=== PATIENT | male | born 1995 | race Caucasian/White ===

== ENCOUNTER 2018-10-12 23:00 | Emergency (ER) | payer OTHER, SELFPAY ==
[2018-10-12 23:01] VITALS: BP 145/102; PULSE 101; PULSE 94; RESP 16; TEMP 37.3; O2SAT 97; O2SAT 99; BMI 30.1
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
--- NOTE | 2018-10-12 23:05 | RAD_ITS ---
HISTORY:PT WAS AT WORK AND GOT CAUGHT BETWEEN A Tquot;RACK AND TOW MOTORTquot; PT HAS PAIN TO ABDOMEN, CHEST AND BACK. ABRASIONS TO RIGHT ARM AND LATERAL ABDOMEN. PT WAS AT WORK AND GOT CAUGHT BETWEEN A Tquot;RACK AND TOW MOTORTquot; PT HAS PAIN TO ABDOMEN, CHEST AND BACK. ABRASIONS TO RIGHT ARM AND LATERAL ABDOMEN. COMPARISON: None FINDINGS: # of images incl. paperwork: 1 XR Pelvis 1 or 2 Views: BONE AND JOINTS: No acute fracture or subluxation. SOFT TISSUES: Unremarkable. No radiopaque foreign body. RAD/Pelvis 1 or 2 Views IMPRESSION: No acute pathology If symptoms persist consider CT examination for further evaluation at 0010 Reported and signed by: Jeanine Chua DO Electronically Signed: Jeanine Chua DO at 0:09 EDT Tel , Service support ,
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
--- NOTE | 2018-10-12 23:07 | ED.RN ---
NO OLD EKGS IN MUSE
[2018-10-12] MEDS: fentaNYL 100 MCG/2 ML Ampul 50 MCG IV (23:12)
[2018-10-12] MEDS: 0.9% Normal Saline 1,000 ML 999 ML IV (23:12)
[2018-10-12] MEDS: Diphth,Pertuss(Acell),Tet Vac 0.5 ML Vial IM (23:18)
[2018-10-12 23:26] LABS: Absolute Lymphocyte Count 3.69 X10^3/ul (0.83-4.51); Absolute Neutrophil Count 5.7 X10^3/uL (2.0-7.7); Basophil# 0.08 X10^3/uL; Basophil% 0.8 % (0-1); Eosinophil# 0.04 X10^3/uL; Eosinophils% 0.4 % (0-5); Hematocrit 45.1 % (40-54); Hemoglobin 15.9 g/dl (13.0-16.5); Lymphocyte # 3.69 X10^3/ul (4.0); Lymphocyte % 35.6 % (19-41); Mean Corp Hgb Conc 35.3 g/gl (32-36); Mean Corpuscular Hgb 28.8 pg (27.0-32.0); Mean Corpuscular Volume 81.7 fL (80-94); Mean Platelet Vol. 12.1 fl (6.2-12.0); Monocyte# 0.72 X10^3/uL; Monocyte% 6.9 % (0-10); Neutrophil # 5.66 X10^3/uL (2.7-7.7); Neutrophil % 54.6 % (47-70); POSITIVE COUNT NO; POSITIVE DIFFERENTIAL NO; POSITIVE MORPHOLOGY NO; Platelet Count 163 K/mm3 (150-450); RBC Distribution Width CV 12.8 % (11.6-14.6); RBC Distribution Width SD 37.9 fl (35.1-43.9); Red Blood Count 5.52 M/mm3 (4.6-6.2); White Blood Count 10.4 K/mm3 (4.4-11.0)
[2018-10-12 23:34] LABS: Partial Thromboplast Time 24.9 Seconds (24.1-36.2)
[2018-10-12 23:42] LABS: AST(SGOT) 36 U/L (15-37); Alanine Aminotransfer ALT/SGPT 39 U/L (16-61); Albumin, Serum 4.9 g/dL (3.2-5.0); Alkaline Phosphatase 112 U/L (45-117); Anion Gap 9 (5-15); BUN 15 mg/dL (7-18); BUN/Creat Ratio 13.3 RATIO (10-20); Bilirubin, Direct 0.13 mg/dL (0.00-0.30); Calcium,Total 9.4 mg/dL (8.5-10.1); Chloride 104 mmol/L (98-107); Creatinine, Serum 1.13 mg/dL (0.70-1.30); EST Glomerular Filtration Rate 85 mL/min (>60); Est Glom Filt Rate - Afr Amer 103 mL/min (>60); Estimated Creatinine Clearance 98.36 ml/min; Globulin 3.4 g/dL (2.2-4.2); Glucose 107 mg/dL (74-106); Potassium 3.2 mmol/L (3.5-5.1); Protein, Total 8.3 g/dL (6.4-8.2); Sodium Level 140 mmol/L (136-145)
[2018-10-12 23:44] VITALS: O2SAT 96
[2018-10-13 00:01] VITALS: BP 156/87; PULSE 99; RESP 16; O2SAT 98
[2018-10-13 00:04] LABS: Color, Urine Yellow (Yellow); Glucose, Dipstick Normal (Normal); Ketone-Dipstick 5 mg/dl (Negative); Leukocyte Esterase-Dipstick Negative /ul (Negative); Nitrite-Dipstick Negative (Negative); Occult Blood-Urine 25 /ul (Negative); Protein-Dipstick Negative (Negative); Specific Gravity, Urine 1.015 (1.002-1.030); Urine Bilirubin Dipstick Negative (Negative); Urine Clarity Clear (Clear); Urine Urobilinogen Normal (Normal); White Blood Cells 0 SEEN /hpf (0-5)
[2018-10-13 00:11] LABS: Bacteria 1+ /hpf (None Seen); Hyaline Cast 0-5 SEEN /lpf (0-5); Mucous, Urine RARE /hpf (<or=2+); Red Blood Cells-Urine 0-5 SEEN /hpf (0-5)
[2018-10-13 00:12] LABS: Squamous Epithelial Cells - UA 0-5 SEEN /hpf (0-5)
[2018-10-13] MEDS: fentaNYL 100 MCG/2 ML Ampul IV (01:00)
[2018-10-13 01:03] VITALS: BP 160/84; PULSE 97; RESP 14; O2SAT 96
--- NOTE | 2018-10-13 01:07 | ED.RN ---
LEFT MESSAGE FOR GUNJAN MALONEY TO TRANSFER PATIENT
[2018-10-13 02:01] VITALS: BP 139/84; PULSE 90; RESP 16; O2SAT 100
== END 2018-10-13 02:01 | disposition short-term general hospital (02) ==
LOC: ED 10-13 00:14
PROVIDERS: Emergency Provider Emergency Medicine
DX: S38.1XXA Crushing injury of abdomen, lower back, and pelvis, initial encounter (principal); S32.82XA Multiple fractures of pelvis without disruption of pelvic ring, initial encounter for closed fracture; S32.10XA Unspecified fracture of sacrum, initial encounter for closed fracture; S27.69XA Other injury of pleura, initial encounter; S22.32XA Fracture of one rib, left side, initial encounter for closed fracture; S40.811A Abrasion of right upper arm, initial encounter; S30.811A Abrasion of abdominal wall, initial encounter; K63.89 Other specified diseases of intestine; V09.9XXA Pedestrian injured in unspecified transport accident, initial encounter; Y93.9 Activity, unspecified; Y92.9 Unspecified place or not applicable
CPT/HCPCS: 71045; 71260; 72170; 74177; 80048; 80076; 81001; 85025; 85610; 85730; 86850; 86900; 90715; 96361; 96374; 96376; 99284; J7030; Q9967; A4216

== ENCOUNTER 2018-10-19 17:30 | Inpatient (IN) | payer OTHER, SELFPAY ==
[2018-10-19 17:52] VITALS: BP 136/92; PULSE 89; RESP 18; TEMP 36.8; O2SAT 96; BMI 30.4
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
[2018-10-19 19:20] VITALS: BP 136/92; PULSE 89; RESP 16; TEMP 36.8; O2SAT 96
[2018-10-19 20:27] VITALS: BMI 30.4
[2018-10-19] MEDS: Senna/Docusate Sodium 1 Tablet 2 TABLET PO (20:59)
[2018-10-19 22:00] VITALS: O2SAT 100
[2018-10-20] MEDS: oxyCODONE 5 MG Tablet PO (05:37)
[2018-10-20] MEDS: Enoxaparin 30 MG/0.3 ML Syringe SC (05:38)
[2018-10-20 06:17] LABS: Absolute Lymphocyte Count 2.06 X10^3/ul (0.83-4.51); Absolute Neutrophil Count 4.2 X10^3/uL (2.0-7.7); Basophil# 0.06 X10^3/uL; Basophil% 0.8 % (0-1); Eosinophil# 0.17 X10^3/uL; Eosinophils% 2.4 % (0-5); Hemoglobin 12.7 g/dl (13.0-16.5); Lymphocyte # 2.06 X10^3/ul (4.0); Lymphocyte % 28.8 % (19-41); Mean Corp Hgb Conc 34.3 g/gl (32-36); Mean Corpuscular Hgb 28.7 pg (27.0-32.0); Mean Corpuscular Volume 83.7 fL (80-94); Monocyte# 0.67 X10^3/uL; Monocyte% 9.4 % (0-10); Neutrophil # 4.17 X10^3/uL (2.7-7.7); Neutrophil % 58.3 % (47-70); Platelet Count 180 K/mm3 (150-450); RBC Distribution Width CV 12.5 % (11.6-14.6); RBC Distribution Width SD 38.4 fl (35.1-43.9); Red Blood Count 4.42 M/mm3 (4.6-6.2); White Blood Count 7.2 K/mm3 (4.4-11.0)
[2018-10-20 06:19] LABS: POSITIVE COUNT NO; POSITIVE DIFFERENTIAL NO; POSITIVE MORPHOLOGY NO
[2018-10-20 06:41] LABS: ALB/GLOB Ratio 0.9 RATIO (0.9-2.4); AST(SGOT) 79 U/L (15-37); Alanine Aminotransfer ALT/SGPT 147 U/L (16-61); Albumin, Serum 3.6 g/dL (3.2-5.0); Alkaline Phosphatase 79 U/L (45-117); Anion Gap 10 (5-15); BUN 16 mg/dL (7-18); BUN/Creat Ratio 22.4 RATIO (10-20); Calcium,Total 9.3 mg/dL (8.5-10.1); Chloride 105 mmol/L (98-107); Creatinine, Serum 0.72 mg/dL (0.70-1.30); EST Glomerular Filtration Rate 144 mL/min (>60); Est Glom Filt Rate - Afr Amer 174 mL/min (>60); Estimated Creatinine Clearance 154.38 ml/min; Globulin 3.8 g/dL (2.2-4.2); Glucose 87 mg/dL (74-106); Potassium 4.1 mmol/L (3.5-5.1); Protein, Total 7.4 g/dL (6.4-8.2); Sodium Level 141 mmol/L (136-145)
[2018-10-20] MEDS: Senna/Docusate Sodium 1 Tablet 2 TABLET PO ×2 (07:41→20:25)
[2018-10-20 07:49] VITALS: BP 140/76; PULSE 80; RESP 16; TEMP 36.2; O2SAT 96
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
--- NOTE | 2018-10-20 13:00 | NURSING ---
Dr. Ham aware of elevated liver enzymes.
--- NOTE | 2018-10-20 13:44 | PCM.RU.PYE ---
Admission Information Status Changes from Prescreening?: No changes Identified Actual Problem List:: Pain, ALteration in Cmfrt, Mobility Impaired, Self Care Deficit Potential Problem List:: DVT, Bleeding, Infection, UTI, Aspiration, Falls, Skin Integrity, Depression Risk of Complications DVT: LMWH, ANDREW Hose, Sequential Compression Device Bleeding: Monitor Lab Values, Nursing to Teach Precautions for anti-coagulation therapy., Wound, if applicable, to be assessed every shift., Stroke patients assessed for lethargy or change in status. Infection: Clinical Staff to Monitor for S/S of infection:, S/S of infection include fever, redness, warmth, etc. Urinary Tract Infection: Monitor for frequency, burning, discomfort, or incontinence., Nursing will obtain urine sample for urinalysis and C&S when ordered. Aspiration: Clinical staff will monitor for coughing, drooling, congestion., Speech will evaluate swallowing and dsyphasia., Nursing will monitor patient swallowing during meals. Falls: Patient will be evaluated for Fall Precautions, Patient will be placed on Fall Precautions as indicated per protocol. Skin Breakdown: Nursing will assess skin daily using assessment tool., Nursing will place on Skin Breakdown Precautions as indicated. Pain: Clinical staff will assess patient's pain level per protocol., Medications will be given, if needed, and the pain level reassessed., Other methods: Massage, distraction, decrease stimulus, etc. used PRN. Plan of Care Patient requires physician specializing in physical medicine and rehab oversight to provide close medical supervision of rehab issues including: Pain Management, Sleep Problems, Bowel and Bladder, Medical and co-morbidity Management, DVT prophylaxis, Rehabilitation Leadership, Coordination of treatment team Patient needs Physical Therapy: For a minimum of 1 hour, At least 5 out of 7 days Patient needs Physical Therapy to improve:: Mobility, Mobility, Mobility, Strengthening, Transfers, Stretching, ROM, Endurance, Stairs, Gait, Balance Patient needs Occupational Therapy: For a minimum of 1 hour, At least 5 out of 7 days Patient needs Occupational Therapy to improve ADL's incl.: Eating, Grooming, Bathing, Dressing, Toileting, Toilet transfers, Community Reintegration, Higher functioning activities, Household tasks, Adaptive Equipment, Splinting, Other activities as determined Patient requires speech therapy: For a minimum of 1 hour, At least 5 out of 7 days Patient requires speech therapy for: Swallowing, Cognition, Language Skills, Compensatory Strategies Patient requires 24/7 Rehabilitation Nursing for: Pain Issues, Identifying and preventing risk factors, Monitoring and reporting current medical conditions, Assisting with ambulation, transfer, and all ADL's, Teaching patients about disease process and medications, Family teaching, Providing safe environment, Bowel and Bladder Issues, Skin integrity, Medication Management Patient needs Export Administrator/ Case Management for: Discharge Planning, Arranging Home Equipment or Services, Family Interventions Patient needs Dietary and Nutrition Services for: Adequate Nutrition, Nutritional Supplements, Nutritional Education Goals Patient will remain: free from falls, or injury at time of discharge. Patient will perform bed mobility at: MOD I level of assist. Patient will complete transfers from bed to chair at: MOD I level of assist. Patient will ambulate: 100 feet, with MOD I assist, with LRD Patient will complete upper body dressing at: MOD I level of assist. Patient will complete lower body dressing at: MOD I level of assist. Patient will complete toileting at: MOD I level of assist. Patient will perform bathing at: MOD I level of assist. Patient will complete grooming at: MOD I level of assist. Patient will complete home management skills at: MOD I level of assist. Patient will achieve: 12 stairs, at MOD I assist Patient will have pain level of: of 3 or less Patient's skin will: remain intact, free from infection. Patient will receive: adequate nutrition. Discharge Planning Pt Prognosis for Sig. Practical Improv. w/in Reasonable Time: Good Estimated Length of stay (days): 14 Anticipated D/C Destination: Home Was Preadmission Assessment Accurate?: Yes
[2018-10-20 19:38] VITALS: BP 146/81; PULSE 76; RESP 16; TEMP 36.8; O2SAT 99
[2018-10-20] MEDS: LORazepam 0.5 MG Tablet PO (20:27)
[2018-10-21] MEDS: Enoxaparin 40 MG/0.4 ML Syringe SC (06:08)
[2018-10-21 07:16] LABS: Absolute Lymphocyte Count 2.04 X10^3/ul (0.83-4.51); Basophil# 0.05 X10^3/uL; Basophil% 0.7 % (0-1); Eosinophil# 0.18 X10^3/uL; Eosinophils% 2.7 % (0-5); Hematocrit 42.9 % (40-54); Hemoglobin 14.8 g/dl (13.0-16.5); Lymphocyte # 2.04 X10^3/ul (4.0); Mean Corp Hgb Conc 34.5 g/gl (32-36); Mean Corpuscular Hgb 29.1 pg (27.0-32.0); Mean Corpuscular Volume 84.3 fL (80-94); Mean Platelet Vol. 10.7 fl (6.2-12.0); Monocyte# 0.53 X10^3/uL; Monocyte% 7.8 % (0-10); Neutrophil # 3.97 X10^3/uL (2.7-7.7); Neutrophil % 58.5 % (47-70); Platelet Count 232 K/mm3 (150-450); RBC Distribution Width CV 12.7 % (11.6-14.6); RBC Distribution Width SD 38.5 fl (35.1-43.9); Red Blood Count 5.09 M/mm3 (4.6-6.2); White Blood Count 6.8 K/mm3 (4.4-11.0)
[2018-10-21 07:27] LABS: POSITIVE COUNT NO; POSITIVE DIFFERENTIAL NO; POSITIVE MORPHOLOGY NO
[2018-10-21 07:47] VITALS: BP 130/72; PULSE 77; RESP 18; TEMP 36.6; O2SAT 96
[2018-10-21 08:04] LABS: AST(SGOT) 85 U/L (15-37); Alanine Aminotransfer ALT/SGPT 202 U/L (16-61); Albumin, Serum 4.3 g/dL (3.2-5.0); Alkaline Phosphatase 96 U/L (45-117); Anion Gap 9 (5-15); BUN 16 mg/dL (7-18); BUN/Creat Ratio 20.3 RATIO (10-20); Calcium,Total 9.7 mg/dL (8.5-10.1); Chloride 102 mmol/L (98-107); Creatinine, Serum 0.79 mg/dL (0.70-1.30); EST Glomerular Filtration Rate 128 mL/min (>60); Est Glom Filt Rate - Afr Amer 155 mL/min (>60); Globulin 4.5 g/dL (2.2-4.2); Glucose 92 mg/dL (74-106); Potassium 3.6 mmol/L (3.5-5.1); Protein, Total 8.8 g/dL (6.4-8.2); Sodium Level 139 mmol/L (136-145)
[2018-10-21] MEDS: Senna/Docusate Sodium 1 Tablet 2 TABLET PO ×2 (10:02→22:31)
[2018-10-21] MEDS: Famotidine 20 MG Tablet PO (10:02)
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
[2018-10-21 18:01] LABS: Amphetamine Urine VISTA NEGATIVE (<1000 ng/mL); Barbiturate Urine VISTA NEGATIVE (< 200 ng/mL); Benzodiazepine Urine VISTA NEGATIVE (< 200 ng/mL); Cocaine Urine VISTA NEGATIVE (< 300 ng/mL); Ecstacy Urine VISTA NEGATIVE (< 500 ng/mL); Methadone Urine VISTA NEGATIVE (< 300 ng/mL); PCP Urine VISTA NEGATIVE (< 25 ng/mL); THC Urine VISTA NEGATIVE (< 50 ng/mL); Vista UDS pH Range 5
[2018-10-21 18:46] LABS: Acetaminophen (Tylenol) Level 6.5 ug/mL (10.0-30.0)
[2018-10-21 20:12] VITALS: BP 137/76; PULSE 80; RESP 16; TEMP 36.8; O2SAT 98
[2018-10-22] MEDS: Enoxaparin 40 MG/0.4 ML Syringe SC (05:24)
--- NOTE | 2018-10-22 05:55 | US_ITS ---
STUDY: ABDOMINAL ULTRASOUND - RIGHT UPPER QUADRANT REASON FOR VISIT: Male, 23 years old. Elevated liver function tests TECHNIQUE: Ultrasound evaluation of the right upper quadrant was performed with real-time and static perkins-scale imaging. TECHNICAL QUALITY: Adequate. COMPARISON: None. FINDINGS: Liver: The liver measures 14.9 cm. There is normal echogenicity of the liver. The bile ducts are within normal limits. There is hepatic color flow. The direction of portal flow is hepatopetal. There is no demonstrated mass lesion. Gallbladder: Normal distended gallbladder. The gallbladder wall measures 2 mm. There is a negative sonographic Thakkar's sign. There is no pericholecystic fluid. There are no gallstones. Common Bile Duct (C.B.D.): The common bile duct measures 4 mm. Pancreas: Normal size of the head, body and tail of the pancreas. There is normal echogenicity of the pancreas. There is no demonstrated pancreatic mass or cyst. Right Kidney: Normal size of the right kidney. The right kidney measures 11.2 x 5.6 x 4.5 cm. Normal renal cortex. The right cortex measures 1.2 cm. There is no demonstrated renal mass or cyst. There is no right hydronephrosis. US/Abdomen Limited IMPRESSION: Normal right upper quadrant ultrasound examination. Electronically Signed: Harpreet Upton, at 16:03 EDT Tel , Service support ,
[2018-10-22 06:34] LABS: AST(SGOT) 48 U/L (15-37); Alanine Aminotransfer ALT/SGPT 159 U/L (16-61); Albumin, Serum 4.3 g/dL (3.2-5.0); Alkaline Phosphatase 99 U/L (45-117); Bilirubin, Direct 0.12 mg/dL (0.00-0.30); Globulin 4.4 g/dL (2.2-4.2); Protein, Total 8.7 g/dL (6.4-8.2)
[2018-10-22] MEDS: Famotidine 20 MG Tablet PO (07:51)
[2018-10-22 07:58] VITALS: BP 137/85; PULSE 81; RESP 12; TEMP 36.3; O2SAT 94
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
--- NOTE | 2018-10-22 15:51 | PN_ITS ---
Patient Problems: Active and Suspected Problems (Last Updated 10/20/18 @ 13:19 by Margie Claudio, UNDERWRITING ANALYST-C) Pelvic fracture (Acute) Pelvic fracture (Acute) Left rib fracture (Acute) 10th Acetabulum fracture, right (Acute) Acetabulum fracture, left (Acute) Subjective: The patient denies any symptoms except left-sided pubic/pelvic pain on movement. Liver profile shows improvement in transaminases. Discussed with the patient. Other viral hepatitis and autoantibodies are pending. Vitals/I&O's: Vital Signs Temp Pulse Resp BP Pulse Ox 97.3 F L 81 12 137/85 H 94 10/22/18 07:58 10/22/18 07:58 10/22/18 07:58 10/22/18 07:58 10/22/18 07:58 Oxygen Delivery Method Room Air Weight: 199 lb 15.348 oz Body Mass Index (BMI) 30.4 Intake and Output for Last 24 Hours 10/20/18 10/21/18 10/22/18 23:59 23:59 23:59 Intake Total 480 / 480 Balance 480 / 480 General: Alert, Oriented x3, Cooperative HEENT: Atraumatic, PERRLA, EOMI, Normocephalic Neck: Supple, No JVD, Negative Carotid Bruits Lungs: Clear to auscultation, Normal air movement, No rhonchi, No wheeze, No rales Cardiovascular: Regular rate, Regular Rhythm, Normal S1, Normal S2, No murmurs Abdomen: Bowel Sounds Present, Soft, Non Tender, Non-Distended, No Hepato- splenomegaly Extremities: No edema, Capillary Refill Less than 3 Seconds Skin: No rashes, No breakdown Musculoskeletal: Tenderness - Mild deep tenderness present on the left pubic and acetabular pain. Lymphatic: No Cervical, Supraclavicular, or Inguinal Adenopathy Neurological: Cranial nerves II-XII grossly intact, Deep Tendon Reflexes 2+/4 and Symmetrical, Neuro grossly intact, Motor Exam 5/5 strength throughout Psych/Mental Status: Normal Affect, Appropriate Laboratory Results 10/21/18 16:50: Acetaminophen 6.5 L 10/21/18 16:50: Hepatitis A IgM Ab Pending, Hep Bs Antigen Pending, Hep B Core IgM Ab Pending, Hepatitis C Ab (EIA) Pending 10/21/18 16:50: KHUSHI Screen Pending, ALIREZA-1 Antibody Pending, SS-A/Ro IgG Antibody Pending, SS-B/La IgG Antibody Pending, Sm (Schwartz) Antibody Pending, FLASH DEVELOPER Antibody Pending, Scl-70 Scleroderma Ab Pending, Double Strand DNA Ab Pending, Centromere B Antibody Pending, Anti-Mitochondrial Ab Pending 10/21/18 16:50: Anti-Smooth Muscle Ab Pending 10/21/18 17:40: Urine Opiates Screen NEGATIVE, Urine Methadone Screen NEGATIVE, Ur Barbiturates Screen NEGATIVE, Ur Phencyclidine Scrn NEGATIVE, Ur Amphetamines Screen NEGATIVE, U Methamphetamin-MDMA NEGATIVE, U Benzodiazepines Scrn NEGATIVE, Urine Cocaine Screen NEGATIVE, U Cannabinoids Screen NEGATIVE, Ur Drug Screen Comment 10/22/18 05:50: Total Bilirubin 0.70, Direct Bilirubin 0.12, AST 48 H, ALT 159 H , Alkaline Phosphatase 99, Total Protein 8.7 H, Albumin 4.3, Globulin 4.4 H Current Medications Bisacodyl (Dulcolax) 10 mg RECTAL .PRN X 1 PRN PRN Reason: Constipation Cyclobenzaprine HCl (Flexeril) 10 mg PO TID PRN PRN PRN Reason: MUSCLE SPASM Enoxaparin Sodium (Lovenox) 40 mg SC DAILY@0600 [facility] Last Admin: 10/22/18 05:24 Dose: 40 mg Documented by: Famotidine (Pepcid) 20 mg PO DAILY [facility] Last Admin: 10/22/18 07:51 Dose: 20 mg Documented by: Lorazepam (Ativan) 0.5 mg PO QHS PRN PRN PRN Reason: INSOMNIA Last Admin: 10/20/18 20:27 Dose: 0.5 mg Documented by: Magnesium Hydroxide (Milk Of Magnesia) 30 ml PO .PRN X 1 PRN PRN Reason: Constipation Oxycodone HCl (Oxyir) 5 mg PO Q6H PRN PRN PRN Reason: SEVERE PAIN (6-10/10) Last Admin: 10/20/18 05:37 Dose: 5 mg Documented by: Senna/Docusate Sodium (Senokot-S, Sowmya-Colace) 2 tablet PO BID [facility] Last Admin: 10/22/18 07:51 Dose: Not Given Documented by: Medical Necessity - Tobacco Use Smoking Status: Current some day smoker - social-1 cigarette per month Tobacco Use: Cigarettes Assessment/Plan All Active Problems (Last Updated 10/20/18 @ 13:19 by Margie Claudio, DARRIUS-C) Pelvic fracture (Acute) Pelvic fracture (Acute) Left rib fracture (Acute) Acetabulum fracture, right (Acute) Acetabulum fracture, left (Acute) There is a 23-year-old gentleman who was admitted for acute rehab from [facility] after he had crush injury on September,. Patient had closed multiple pelvic fracture with disruption of the pelvic ring and closed left and [address] chest, abdomen and pelvis were done in [facility] showed left 10th posterior rib nondisplaced fracture incision minimal pleural thickening/hematoma. Left SIDED sacral fracture, left iliac fracture,displaced fx of right acetabulum, right superior pubic bone fx and non displaced fx inferior pubic ramus on left and left acetabular fracture. 1. Multiple trauma, closed as mentioned above: Patient is on acute rehab. Continue PT and OT. 2. Elevated transaminases, exact etiology unclear possible medication induced/drug-induced liver injury: Patient admits he drinks alcohol 6, 12 ounce beer bottle once in a week. Patient denies other substance use. Patient denies history of viral hepatitis. Follow-up LFTs shows improvement in ALT and AST. LFT pattern shows ALT more than twice AST. Total bili, alkaline phosphatase, albumin on a normal range. A/G ratio 1 S2 1. Tylenol level, U tox are negative. Autoimmune antibodies and viral hepatitis are pending. Kidney function is normal. Overall it seems drug-induced liver injury which is improving. 2. DVT prophylaxis with Lovenox Clinical Impression(s) from Imaging Studies Abdomen Ultrasound 10/22/18 05:55 IMPRESSION: Normal right upper quadrant ultrasound examination. Laboratory Results 10/21/18 16:50: Acetaminophen 6.5 L 10/21/18 16:50: Hepatitis A IgM Ab Pending, Hep Bs Antigen Pending, Hep B Core IgM Ab Pending, Hepatitis C Ab (EIA) Pending ]10/21/18 16:50: KHUSHI Screen Pending, ALIREZA-1 Antibody Pending, SS-A/Ro IgG Antibody Pending, SS-B/La IgG Antibody Pending, Sm (Schwartz) Antibody Pending, FLASH DEVELOPER Antibody Pending, Scl-70 Scleroderma Ab Pending, Double Strand DNA Ab Pending, Centromere B Antibody Pending, Anti-Mitochondrial Ab Pending 10/21/18 16:50: Anti-Smooth Muscle Ab Pending 10/21/18 17:40: Urine Opiates Screen NEGATIVE, Urine Methadone Screen NEGATIVE, Ur Barbiturates Screen NEGATIVE, Ur Phencyclidine Scrn NEGATIVE, Ur Amphetamines Screen NEGATIVE, U Methamphetamin-MDMA NEGATIVE, U Benzodiazepines Scrn NEGATIVE, Urine Cocaine Screen NEGATIVE, U Cannabinoids Screen NEGATIVE, Ur Drug Screen Comment 10/22/18 05:50: Total Bilirubin 0.70, Direct Bilirubin 0.12, AST 48 H, ALT 159 H , Alkaline Phosphatase 99, Total Protein 8.7 H, Albumin 4.3, Globulin 4.4 H Code Visit Inpatient E&M: 10768 Subs Hosp L2
[2018-10-22 18:57] VITALS: BP 135/72; PULSE 85; RESP 16; TEMP 36.8; O2SAT 96
[2018-10-23 06:06] LABS: HEPATITIS B SURFACE AG Negative (Negative); Hepatitis A IgM Antibody Negative (Negative); Hepatitis B Core AB IgM Negative (Negative)
[2018-10-23] MEDS: Enoxaparin 40 MG/0.4 ML Syringe SC (06:14)
[2018-10-23 07:14] VITALS: BP 132/82; PULSE 97; RESP 16; TEMP 36.7; O2SAT 97
[2018-10-23] MEDS: Famotidine 20 MG Tablet PO (08:18)
[2018-10-23] MEDS: oxyCODONE 5 MG Tablet PO (08:22)
[2018-10-23 19:09] VITALS: BP 145/74; PULSE 83; RESP 20; TEMP 36.8; O2SAT 96
[2018-10-24] MEDS: Enoxaparin 40 MG/0.4 ML Syringe SC (05:30)
[2018-10-24] MEDS: Famotidine 20 MG Tablet PO (08:28)
[2018-10-24] MEDS: oxyCODONE 5 MG Tablet PO (08:29)
[2018-10-24 08:35] VITALS: BP 141/80; PULSE 72; RESP 16; TEMP 36.6; O2SAT 98
--- NOTE | 2018-10-24 15:03 | NURSING ---
offered ambulation multiple times today and pt refused.
[2018-10-24 15:48] LABS: Anti-Smooth Muscle ABS 9 Units (0-19)
[2018-10-24 16:17] LABS: Hep C Antibodies <0.1 s/co ratio (0.0-0.9)
--- NOTE | 2018-10-24 16:55 | PCM.PN.HOSP ---
Patient Problems: Active and Suspected Problems (Last Updated 10/20/18 @ 13:19 by Margie Claudio, RAIL TRANSPORTATION OPERATOR-C) Pelvic fracture (Acute) Pelvic fracture (Acute) Left rib fracture (Acute) 10th Acetabulum fracture, right (Acute) Acetabulum fracture, left (Acute) Subjective: The patient does not have pubic or left groin pain until he she tries to move it. Vitals/I&O's: Vital Signs Temp Pulse Resp BP Pulse Ox 97.8 F 72 16 141/80 H 98 10/24/18 08:35 10/24/18 08:35 10/24/18 08:35 10/24/18 08:35 10/24/18 08:35 Oxygen Delivery Method Room Air Weight: 199 lb 15.348 oz Body Mass Index (BMI) 30.4 Intake and Output for Last 24 Hours 10/22/18 10/23/18 10/24/18 23:59 23:59 23:59 Intake Total 720 / 720 Balance 720 / 720 General: Alert, Oriented x3, Cooperative HEENT: Atraumatic, PERRLA, EOMI, Normocephalic Neck: Supple, No JVD, Negative Carotid Bruits Lungs: Clear to auscultation, Normal air movement, No rhonchi, No wheeze Cardiovascular: Regular rate, Regular Rhythm, Normal S1, Normal S2, No murmurs Abdomen: Bowel Sounds Present, Soft, Non Tender Extremities: No edema, Capillary Refill Less than 3 Seconds Skin: No rashes, No breakdown Musculoskeletal: Tenderness - Mild deep tenderness at left groin, pelvic bone and hip joint area Neurological: Cranial nerves II-XII grossly intact Psych/Mental Status: Normal Affect, Appropriate Laboratory Results 10/21/18 16:50: Hepatitis A IgM Ab Negative, Hep Bs Antigen Negative, Hep B Core IgM Ab Negative, Hepatitis C Ab (EIA) <0.1 10/21/18 16:50: Anti-Smooth Muscle Ab 9 Current Medications Bisacodyl (Dulcolax) 10 mg RECTAL .PRN X 1 PRN PRN Reason: Constipation Cyclobenzaprine HCl (Flexeril) 10 mg PO TID PRN PRN PRN Reason: MUSCLE SPASM Enoxaparin Sodium (Lovenox) 40 mg SC DAILY@0600 [facility] Last Admin: 10/24/18 05:30 Dose: 40 mg Documented by: Famotidine (Pepcid) 20 mg PO DAILY [facility] Last Admin: 10/24/18 08:28 Dose: 20 mg Documented by: Lorazepam (Ativan) 0.5 mg PO QHS PRN PRN PRN Reason: INSOMNIA Last Admin: 10/20/18 20:27 Dose: 0.5 mg Documented by: Magnesium Hydroxide (Milk Of Magnesia) 30 ml PO .PRN X 1 PRN PRN Reason: Constipation Oxycodone HCl (Oxyir) 5 mg PO Q6H PRN PRN PRN Reason: SEVERE PAIN (6-1010) Last Admin: 10/24/18 08:29 Dose: 5 mg Documented by: Senna/Docusate Sodium (Senokot-S, Sowmya-Colace) 2 tablet PO BID [facility] Last Admin: 10/24/18 08:28 Dose: Not Given Documented by: Medical Necessity - Tobacco Use Smoking Status: Current some day smoker - social-1 cigarette per month Tobacco Use: Cigarettes Assessment/Plan All Active Problems (Last Updated 10/20/18 @ 13:19 by Margie Claudio, RAIL TRANSPORTATION OPERATOR-C) Pelvic fracture (Acute) Pelvic fracture (Acute) Left rib fracture (Acute) Acetabulum fracture, right (Acute) Acetabulum fracture, left (Acute) There is a 23-year-old gentleman who was admitted for acute rehab from [facility] after he had crush injury on September,. Patient had closed multiple pelvic fracture with disruption of the pelvic ring and closed left and [address] chest, abdomen and pelvis were done in [facility] showed left 10th posterior rib nondisplaced fracture incision minimal pleural thickening/hematoma. Left SIDED sacral fracture, left iliac fracture,displaced fx of right acetabulum, right superior pubic bone fx and non displaced fx inferior pubic ramus on left and left acetabular fracture. 1. Multiple trauma, closed as mentioned above: Patient is on acute rehab. Continue PT and OT. 2. Elevated transaminases, exact etiology unclear possible medication induced/drug-induced liver injury: Patient admits he drinks alcohol 6-12 ounce beer bottle once in a week. Patient denies other substance use. Patient denies history of viral hepatitis. Follow-up LFTs shows improvement in ALT and AST. LFT pattern shows ALT more than twice AST. Total bili, alkaline phosphatase, albumin on a normal range. A/G ratio 1: 1. Tylenol level, U tox are negative. Acute viral hepatitis A, B, and C are negative. Anti-smooth muscle antibody normal. Rest autoimmune antibodies are pending. Overall it seems drug-induced liver injury which is improving. Monitor LFT tomorrow a.m. 2. DVT prophylaxis with Lovenox Clinical Impression(s) from Imaging Studies Abdomen Ultrasound 10/22/18 05:55 IMPRESSION: Normal right upper quadrant ultrasound examination. 10/22/18 05:50: Total Bilirubin 0.70, Direct Bilirubin 0.12, AST 48 H, ALT 159 H, Alkaline Phosphatase 99, Total Protein 8.7 H, Albumin 4.3, Globulin 4.4 H Code Visit Inpatient E&M: 21190 Subs Hosp L2
[2018-10-24 18:13] LABS: AST(SGOT) 17 U/L (15-37); Alanine Aminotransfer ALT/SGPT 73 U/L (16-61); Alkaline Phosphatase 128 U/L (45-117); Bilirubin, Direct 0.06 mg/dL (0.00-0.30); Globulin 4.1 g/dL (2.2-4.2); Protein, Total 8.1 g/dL (6.4-8.2)
[2018-10-24 19:28] VITALS: BP 130/71; PULSE 80; RESP 20; TEMP 37.2; O2SAT 94
[2018-10-25] MEDS: Enoxaparin 40 MG/0.4 ML Syringe SC (05:55)
[2018-10-25] MEDS: oxyCODONE 5 MG Tablet PO ×2 (06:00→19:54)
[2018-10-25 06:34] LABS: AST(SGOT) 15 U/L (15-37); Alanine Aminotransfer ALT/SGPT 63 U/L (16-61); Albumin, Serum 3.7 g/dL (3.2-5.0); Alkaline Phosphatase 121 U/L (45-117); Bilirubin, Direct 0.07 mg/dL (0.00-0.30); Globulin 3.8 g/dL (2.2-4.2); Protein, Total 7.5 g/dL (6.4-8.2)
[2018-10-25 07:17] VITALS: BP 135/76; PULSE 72; RESP 16; TEMP 37; O2SAT 98
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
[2018-10-25] MEDS: Famotidine 20 MG Tablet PO (10:02)
--- NOTE | 2018-10-25 14:28 | CASEMGMT ---
Social Work IDT met with patient for Team meeting. Discussed making progress with therapy. Pts ludin is finishing school in a week, and can assist at home once she is finished. Will reteam next week. Met with [employer] rifle case repairer, Chelle, , for pts workers comp case. [facility] has approved pt to continue receiving therapy until pt is ready. Will submit for DME - crutches, walker, shower chair, medical sales consultant - as well as [facility] PT/OT. C.M. will attend Team meeting next week, and pt will discharge 11/02. BLANCA DixonW
--- NOTE | 2018-10-25 16:22 | CHAPLAIN ---
Type of Pastoral Visit _x__ Initial Visit ___ Follow-up Visit ___ On-call Visit ___ General Patient Visit ___ Spiritual Assessment ___ Family Conference ___ Bereavement ___ Rapid Response ___ Code Blue ___ Other (describe below) Pastoral Care Referral From _x__ Patient ___ Family ___ Nurse ___ Physician ___ Motor Racer ___ Executive Coordinator ___ Other (describe below) Sacrament/Intervention _x__ Active listening ___ Anointing ___ Zoroastrianism ___ Bereavement ___ Communion ___ [place] exploration ___ ___ Life review ___ Prayer ___ Reconciliation ___ Sacrament of Sick ___ Supportive presence ___ Wedding ___ Other (describe below) Pastoral Comments
[2018-10-25 19:40] VITALS: BP 126/89; PULSE 94; RESP 16; TEMP 36.7; O2SAT 98
[2018-10-25 22:00] VITALS: RESP 17; O2SAT 95
[2018-10-26] MEDS: Enoxaparin 40 MG/0.4 ML Syringe SC (06:22)
[2018-10-26 07:10] VITALS: BP 125/70; PULSE 66; RESP 16; TEMP 36.3; O2SAT 98
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
[2018-10-26] MEDS: Senna/Docusate Sodium 1 Tablet 2 TABLET PO ×2 (09:51→20:03)
[2018-10-26] MEDS: Famotidine 20 MG Tablet PO (09:51)
--- NOTE | 2018-10-26 14:43 | CASEMGMT ---
Social Work Pt does not have insurance through employer. Provided Medicaid application and resources to pt. Moni Rider MSW RESEARCH METHODS INSTRUCTOR
--- NOTE | 2018-10-26 16:02 | PCM.PN.HOSP ---
Patient Problems: Active and Suspected Problems (Last Updated 10/20/18 @ 13:19 by Margie Claudio, INSTRUMENTATION AND CONTROLS TECHNICIAN-C) Pelvic fracture (Acute) Pelvic fracture (Acute) Left rib fracture (Acute) 10th Acetabulum fracture, right (Acute) Acetabulum fracture, left (Acute) Subjective: Patient seen and examined. He feels well and has no complaints. Review of systems otherwise negative. Vitals/I&O's: Vital Signs Temp Pulse Resp BP Pulse Ox 97.4 F L 66 16 125/70 H 98 10/26/18 07:10 10/26/18 07:10 10/26/18 07:10 10/26/18 07:10 10/26/18 07:10 Oxygen Delivery Method Room Air Weight: 199 lb 15.348 oz Body Mass Index (BMI) 30.4 Intake and Output for Last 24 Hours 10/24/18 10/25/18 10/26/18 23:59 23:59 23:59 Intake Total 440 / 440 880 / 880 Balance 440 / 440 880 / 880 General: Alert, Oriented x3, Cooperative, No apparent distress HEENT: Atraumatic, PERRLA, EOMI, Normocephalic Oral: Moist Mucosa Neck: Supple, No JVD, Negative Carotid Bruits Lungs: Clear to auscultation, Normal air movement, No rhonchi, No wheeze Cardiovascular: Regular rate, Regular Rhythm, Normal S1, Normal S2, No murmurs Abdomen: Bowel Sounds Present, Soft, Non Tender, Non-Distended, No Hepato-splenomegaly Extremities: No clubbing, No cyanosis, No edema, Capillary Refill Less than 3 Seconds Skin: No rashes, No breakdown Musculoskeletal: No Tenderness to Palpation of Joints or Extremities Lymphatic: No Cervical, Supraclavicular, or Inguinal Adenopathy Neurological: Cranial nerves II-XII grossly intact, Neuro grossly intact, Motor Exam 5/5 strength throughout Psych/Mental Status: Normal Affect, Appropriate, Alert and oriented to time, place, person, mood and affect Current Medications Bisacodyl (Dulcolax) 10 mg RECTAL .PRN X 1 PRN PRN Reason: Constipation Cyclobenzaprine HCl (Flexeril) 10 mg PO TID PRN PRN PRN Reason: MUSCLE SPASM Enoxaparin Sodium (Lovenox) 40 mg SC DAILY@0600 [facility] Last Admin: 10/26/18 06:22 Dose: 40 mg Documented by: Famotidine (Pepcid) 20 mg PO DAILY [facility] Last Admin: 10/26/18 09:51 Dose: 20 mg Documented by: Lorazepam (Ativan) 0.5 mg PO QHS PRN PRN PRN Reason: INSOMNIA Last Admin: 10/20/18 20:27 Dose: 0.5 mg Documented by: Magnesium Hydroxide (Milk Of Magnesia) 30 ml PO .PRN X 1 PRN PRN Reason: Constipation Oxycodone HCl (Oxyir) 5 mg PO Q6H PRN PRN PRN Reason: SEVERE PAIN (6-10/10) Last Admin: 10/25/18 19:54 Dose: 5 mg Documented by: Senna/Docusate Sodium (Senokot-S, Sowmya-Colace) 2 tablet PO BID [facility] Last Admin: 10/26/18 09:51 Dose: 2 tablet Documented by: Medical Necessity - Tobacco Use Smoking Status: Current some day smoker - social-1 cigarette per month Tobacco Use: Cigarettes Assessment/Plan All Active Problems (Last Updated 10/20/18 @ 13:19 by Margie Claudio, INSTRUMENTATION AND CONTROLS TECHNICIAN-C) Pelvic fracture (Acute) Pelvic fracture (Acute) Left rib fracture (Acute) Acetabulum fracture, right (Acute) Acetabulum fracture, left (Acute) 1. Dehbility due to traumatic closed pelvic fracutre also has posterior left 10th nondisplaced fracture and left sided sacral, iliac fracture and right acetabular, superior pubic bone fracture as well as infrecior pubic rami fracture PT/OT on board On Flexeril. On oxycodone for pain. 2. Elevated liver enzymes. Liver enzymes peaked at ALP of 128 and ALT of 73. AST and direct bilirubin as well as total bilirubin were within normal limits. Have started trending down. Will monitor. Right upper quadrant ultrasound was negative. Hepatitis screen was also negative. DVT prophylaxis: Lovenox. Code Visit Inpatient E&M: 55702 Subs Hosp L2
[2018-10-26 19:03] VITALS: BP 150/83; PULSE 83; RESP 16; TEMP 36.8; O2SAT 96
[2018-10-26 20:58] VITALS: RESP 17; O2SAT 96
[2018-10-27] MEDS: Enoxaparin 40 MG/0.4 ML Syringe SC (06:25)
[2018-10-27 07:29] VITALS: BP 147/60; PULSE 93; RESP 16; TEMP 36.6; O2SAT 98
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
--- NOTE | 2018-10-27 09:17 | PCM.PN.NEU ---
Patient Problems: Active and Suspected Problems (Last Updated 10/20/18 @ 13:19 by Margie Claudio NP-C) Pelvic fracture (Acute) Pelvic fracture (Acute) Left rib fracture (Acute) 10th Acetabulum fracture, right (Acute) Acetabulum fracture, left (Acute) Subjective: Per nursing patient has had pain last night and today. Patient rates pain to back 8/10, constant sharp to dull ache. Prn dilaudid was d/c yesterday and started prn oxyir in addition to tylenol. Tylenol was decreased to 650 mg tid due to elevated AST/ALT levels. Duragesic 25 mcg patch ordered. AST/ALT levels were elevated at previous hospital yesterday AST 44, ALT - Physical Exam Vital Signs Temp Pulse Resp BP Pulse Ox 97.9 F 93 16 147/60 H 98 10/27/18 07:29 10/27/18 07:29 10/27/18 07:29 10/27/18 07:29 10/27/18 07:29 Oxygen Delivery Method Room Air Weight: 90.7 kg Body Mass Index (BMI) 30.4 Intake and Output for Last 24 Hours 10/25/18 10/26/18 10/27/18 23:59 23:59 23:59 Intake Total 440 / 440 880 / 880 Balance 440 / 440 880 / 880 Medical Necessity - Tobacco Use Smoking Status: Current some day smoker - social-1 cigarette per month Tobacco Use: Cigarettes Assessment/Plan All Active Problems (Last Updated 10/20/18 @ 13:19 by Margie Claudio NP-C) Pelvic fracture (Acute) Pelvic fracture (Acute) Left rib fracture (Acute) Acetabulum fracture, right (Acute) Acetabulum fracture, left (Acute)
[2018-10-27] MEDS: Famotidine 20 MG Tablet PO (09:52)
[2018-10-27 17:57] LABS: ANTINUCLEAR ANTIBODIES DIRECT Negative (Negative); Anti-Mitochondrial AB <20.0 Units (0.0-20.0)
[2018-10-27 19:57] VITALS: BP 122/72; PULSE 75; RESP 18; TEMP 37.1; O2SAT 97
[2018-10-27 22:00] VITALS: PULSE 82; RESP 18; O2SAT 97
[2018-10-28] MEDS: Enoxaparin 40 MG/0.4 ML Syringe SC (05:51)
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
[2018-10-28 09:01] VITALS: BP 138/69; PULSE 91; RESP 18; TEMP 36.6; O2SAT 98
[2018-10-28] MEDS: Famotidine 20 MG Tablet PO (12:09)
--- NOTE | 2018-10-28 14:08 | PN_ITS ---
Patient Problems: Active and Suspected Problems (Last Updated 10/20/18 @ 13:19 by Margie Claudio, SUPPLY CHAIN GENERALIST-C) Pelvic fracture (Acute) Pelvic fracture (Acute) Left rib fracture (Acute) 10th Acetabulum fracture, right (Acute) Acetabulum fracture, left (Acute) Subjective: Patient seen and examined. He has no complaints. Review of systems otherwise negative. He has an appointment with his surgeon tomorrow. Vitals/I&O's: Vital Signs Temp Pulse Resp BP Pulse Ox 98 F 91 18 138/69 H 98 10/28/18 09:01 10/28/18 09:01 10/28/18 09:01 10/28/18 09:01 10/28/18 09:01 Oxygen Delivery Method Room Air Weight: 199 lb 15.348 oz Body Mass Index (BMI) 30.4 Intake and Output for Last 24 Hours 10/26/18 10/27/18 10/28/18 23:59 23:59 23:59 Intake Total 880 / 880 400 / 400 Balance 880 / 880 400 / 400 General: Alert, Oriented x3, Cooperative, No apparent distress HEENT: Atraumatic, PERRLA, EOMI, Normocephalic Oral: Moist Mucosa Neck: Supple, No JVD, Negative Carotid Bruits Lungs: Clear to auscultation, Normal air movement, No rhonchi, No wheeze Cardiovascular: Regular rate, Regular Rhythm, Normal S1, Normal S2, No murmurs Abdomen: Bowel Sounds Present, Soft, Non Tender, Non-Distended, No Hepato- splenomegaly Extremities: No clubbing, No cyanosis, No edema, Capillary Refill Less than 3 Seconds Skin: No rashes, No breakdown Musculoskeletal: No Tenderness to Palpation of Joints or Extremities Lymphatic: No Cervical, Supraclavicular, or Inguinal Adenopathy Neurological: Cranial nerves II-XII grossly intact, Neuro grossly intact, Motor Exam 5/5 strength throughout Psych/Mental Status: Normal Affect, Appropriate, Alert and oriented to time, place, person, mood and affect Laboratory Results 10/21/18 16:50: KHUSHI Screen Negative, ALIREZA-1 Antibody Not Reportable, SS-A/Ro IgG Antibody Not Reportable, SS-B/La IgG Antibody Not Reportable, Sm (Schwartz) Antibody Not Reportable, WARP TYING MACHINE KNOTTER Antibody Not Reportable, Scl-70 Scleroderma Ab Not Reportable, Double Strand DNA Ab Not Reportable, Centromere B Antibody Not Reportable, Anti-Mitochondrial Ab <20.0 Current Medications Bisacodyl (Dulcolax) 10 mg RECTAL .PRN X 1 PRN PRN Reason: Constipation Cyclobenzaprine HCl (Flexeril) 10 mg PO TID PRN PRN PRN Reason: MUSCLE SPASM Enoxaparin Sodium (Lovenox) 40 mg SC DAILY@0600 [facility] Last Admin: 10/28/18 05:51 Dose: 40 mg Documented by: Famotidine (Pepcid) 20 mg PO DAILY [facility] Last Admin: 10/28/18 12:09 Dose: 20 mg Documented by: Lorazepam (Ativan) 0.5 mg PO QHS PRN PRN PRN Reason: INSOMNIA Last Admin: 10/20/18 20:27 Dose: 0.5 mg Documented by: Magnesium Hydroxide (Milk Of Magnesia) 30 ml PO .PRN X 1 PRN PRN Reason: Constipation Oxycodone HCl (Oxyir) 5 mg PO Q6H PRN PRN PRN Reason: SEVERE PAIN (6-1010) Last Admin: 10/25/18 19:54 Dose: 5 mg Documented by: Senna/Docusate Sodium (Senokot-S, Sowmya-Colace) 2 tablet PO BID [facility] Last Admin: 10/28/18 12:08 Dose: Not Given Documented by: Medical Necessity - Tobacco Use Smoking Status: Current some day smoker - social-1 cigarette per month Tobacco Use: Cigarettes Assessment/Plan All Active Problems (Last Updated 10/20/18 @ 13:19 by Margie Claudio, SUPPLY CHAIN GENERALIST-C) Pelvic fracture (Acute) Pelvic fracture (Acute) Left rib fracture (Acute) Acetabulum fracture, right (Acute) Acetabulum fracture, left (Acute) 1. Dehbility due to traumatic closed pelvic fracutre * has posterior left 10th nondisplaced fracture and left sided sacral, iliac fracture and right acetabular, superior pubic bone fracture as well as infrecior pubic rami fracture * PT/OT on board * On Flexeril. On oxycodone for pain. 2. Elevated liver enzymes. * Liver enzymes peaked at ALP of 128 and ALT of 73. * AST and direct bilirubin as well as total bilirubin were within normal limits. * Will monitor. * Right upper quadrant ultrasound was negative. Hepatitis screen was also negative. * DVT prophylaxis: Lovenox. Code Visit Inpatient E&M: 86366 Subs Hosp L2
[2018-10-28 19:08] VITALS: BP 128/78; PULSE 77; RESP 16; TEMP 36.6; O2SAT 98
[2018-10-29] MEDS: Enoxaparin 40 MG/0.4 ML Syringe SC (06:08)
[2018-10-29 07:00] VITALS: BP 120/75; PULSE 65; RESP 14; TEMP 36.5; O2SAT 98
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
[2018-10-29] MEDS: Famotidine 20 MG Tablet PO (08:20)
--- NOTE | 2018-10-29 12:30 | NURSING ---
to ortho f/u appt
--- NOTE | 2018-10-29 16:30 | NURSING ---
Returned from appt with new orders to increase WB status to PWB LLE.
[2018-10-29 19:45] VITALS: BP 144/78; PULSE 86; RESP 18; TEMP 36.8; O2SAT 98
[2018-10-30] MEDS: Enoxaparin 40 MG/0.4 ML Syringe SC (05:53)
[2018-10-30 08:12] VITALS: BP 127/75; PULSE 67; RESP 18; TEMP 36.4; O2SAT 97
[2018-10-30] MEDS: Famotidine 20 MG Tablet PO (09:00)
--- NOTE | 2018-10-30 13:14 | PN_ITS ---
Patient Problems: Active and Suspected Problems (Last Updated 10/20/18 @ 13:19 by Margie Claudio, TELEPHONE STATION INSTALLER-C) Pelvic fracture (Acute) Pelvic fracture (Acute) Left rib fracture (Acute) 10th Acetabulum fracture, right (Acute) Acetabulum fracture, left (Acute) Subjective: Patient seen and examined. He had no complaints. REview of systems is otherwise negative. Vitals/I&O's: Vital Signs Temp Pulse Resp BP Pulse Ox 97.6 F L 67 18 127/75 H 97 10/30/18 08:12 10/30/18 08:12 10/30/18 08:12 10/30/18 08:12 10/30/18 08:12 Oxygen Delivery Method Room Air Weight: 199 lb 15.348 oz Body Mass Index (BMI) 30.4 Intake and Output for Last 24 Hours 10/28/18 10/29/18 10/30/18 23:59 23:59 23:59 Intake Total 400 / 400 840 / 840 Balance 400 / 400 840 / 840 General: Alert, Oriented x3, Cooperative, No apparent distress HEENT: Atraumatic, PERRLA, EOMI, Normocephalic Oral: Moist Mucosa Neck: Supple, No JVD, Negative Carotid Bruits Lungs: Clear to auscultation, Normal air movement, No rhonchi, No wheeze Cardiovascular: Regular rate, Regular Rhythm, Normal S1, Normal S2, No murmurs Abdomen: Bowel Sounds Present, Soft, Non Tender, Non-Distended, No Hepato- splenomegaly Extremities: No clubbing, No cyanosis, No edema, Capillary Refill Less than 3 Seconds Skin: No rashes, No breakdown Musculoskeletal: No Tenderness to Palpation of Joints or Extremities Lymphatic: No Cervical, Supraclavicular, or Inguinal Adenopathy Neurological: Cranial nerves II-XII grossly intact, Neuro grossly intact, Motor Exam 5/5 strength throughout Psych/Mental Status: Normal Affect, Appropriate, Alert and oriented to time, place, person, mood and affect Current Medications Bisacodyl (Dulcolax) 10 mg RECTAL .PRN X 1 PRN PRN Reason: Constipation Cyclobenzaprine HCl (Flexeril) 10 mg PO TID PRN PRN PRN Reason: MUSCLE SPASM Enoxaparin Sodium (Lovenox) 40 mg SC DAILY@0600 [facility] Last Admin: 10/30/18 05:53 Dose: 40 mg Documented by: Famotidine (Pepcid) 20 mg PO DAILY [facility] Last Admin: 10/30/18 09:00 Dose: 20 mg Documented by: Lorazepam (Ativan) 0.5 mg PO QHS PRN PRN PRN Reason: INSOMNIA Last Admin: 10/20/18 20:27 Dose: 0.5 mg Documented by: Magnesium Hydroxide (Milk Of Magnesia) 30 ml PO .PRN X 1 PRN PRN Reason: Constipation Oxycodone HCl (Oxyir) 5 mg PO Q6H PRN PRN PRN Reason: SEVERE PAIN (6-10/10) Last Admin: 10/25/18 19:54 Dose: 5 mg Documented by: Senna/Docusate Sodium (Senokot-S, Sowmya-Colace) 2 tablet PO BID [facility] Last Admin: 10/30/18 08:58 Dose: Not Given Documented by: Medical Necessity - Tobacco Use Smoking Status: Current some day smoker - social-1 cigarette per month Tobacco Use: Cigarettes Assessment/Plan All Active Problems (Last Updated 10/20/18 @ 13:19 by Margie Claudio, TELEPHONE STATION INSTALLER-C) Pelvic fracture (Acute) Pelvic fracture (Acute) Left rib fracture (Acute) Acetabulum fracture, right (Acute) Acetabulum fracture, left (Acute) 1. Debility due to traumatic closed pelvic fracutre * has posterior left 10th nondisplaced fracture and left sided sacral, iliac fracture and right acetabular, superior pubic bone fracture as well as inferior pubic rami fracture * PT/OT on board * On Flexeril. On oxycodone for pain. 2. Elevated liver enzymes. * Liver enzymes peaked at ALP of 128 and ALT of 73. * AST and direct bilirubin as well as total bilirubin were within normal limits. * Right upper quadrant ultrasound was negative. Hepatitis screen was also negative. * to follow up with PCP on outpatient basis. * DVT prophylaxis: Lovenox. Code Visit Inpatient E&M: 71009 Subs Hosp L2
[2018-10-30 20:03] VITALS: BP 147/81; PULSE 97; RESP 16; TEMP 36.7; O2SAT 98
[2018-10-31] MEDS: Enoxaparin 40 MG/0.4 ML Syringe SC (08:40)
[2018-10-31] MEDS: Famotidine 20 MG Tablet PO (08:41)
[2018-10-31 08:45] VITALS: BP 144/87; PULSE 80; RESP 16; TEMP 36.6; O2SAT 98
[2018-10-31 18:26] VITALS: BP 138/73; PULSE 64; RESP 16; TEMP 36.7; O2SAT 98
[2018-11-01] MEDS: Enoxaparin 40 MG/0.4 ML Syringe SC (05:45)
[2018-11-01 07:06] VITALS: BP 143/73; PULSE 87; RESP 17; TEMP 36.6; O2SAT 98
[2018-11-01] MEDS: Famotidine 20 MG Tablet PO (07:51)
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
--- NOTE | 2018-11-01 10:51 | NURSING ---
Pt is now Modified Independent per therapy.
--- NOTE | 2018-11-01 11:12 | CASEMGMT ---
Social Work IDT met with patient and [employer] geriatric case manager for Team Meeting. Discussed patient progressing well with therapy - now Mod I until discharge 11/02, home with S.O. Therapy recommending no HHC, but a FWW, crutches and shower bench - C.M. ordered and has been delivered to pts home. Plan: DC home with S.O. 11/02 with DME and No HHC. Moni Rider, NECK BAND OPERATOR PROOFER [employer]
[2018-11-01 16:12] LABS: Alanine Aminotransfer ALT/SGPT 28 U/L (16-61)
[2018-11-01 20:19] VITALS: BP 132/71; PULSE 79; RESP 16; TEMP 36.9; O2SAT 97
[2018-11-01 21:15] VITALS: PULSE 79; RESP 16; O2SAT 97
--- NOTE | 2018-11-02 01:48 | NURSING ---
Reviewed and agree with MAILER documentation and FIMs charting.
[2018-11-02] MEDS: Enoxaparin 40 MG/0.4 ML Syringe SC (06:37)
--- NOTE | 2018-11-02 07:21 | NURSING ---
Pt ambulating around unit
[2018-11-02 07:27] VITALS: BP 140/78; PULSE 83; RESP 16; TEMP 36.5; O2SAT 98
[2018-11-02] MEDS: Famotidine 20 MG Tablet PO (08:03)
--- NOTE | 2018-11-02 08:15 | DCINST_ITS ---
- Discharge Diagnoses Current Active Problems: Current Active and Chronic Problems (Last Updated 10/20/18 @ 13:19 by Margie Claudio FOUNDER CHAIRMAN AND CHIEF CREATIVE OFFICER-C) Pelvic fracture (Acute) Pelvic fracture (Acute) Left rib fracture (Acute) 10th Acetabulum fracture, right (Acute) Acetabulum fracture, left (Acute) Reason(s) for Visit for Discharge Instructions: Debility secondary to multiple closed pelvic fractures with disruption of pelvic [place] and closed 10th rib fx, post trauma, You will use the following diet at home:: No restrictions Your food should be the consistency of: Regular Your liquids should be the consistency of: Regular/Thin Discharge Activity: Return to Normal Activity, May Not Drive, May Shower, Use Crutches Weight Bearing Status: Weight bearing as tolerated - Right lower extremity, Part ial weight bearing - Left lower extremity (40 lbs) Call your doctor if you observe: Fever of 101 or Higher, Coldness, Increased Pain, Numbness or Tingling, Change in Color, Inability to urinate, Inability to have a bowel movement, Shortness of breath, Dizziness, Fainting spells, Swelling in the ankles, Chest pain, Prolonged hiccoughing, Increased palpitations (irregular heartbeat), Calf discomfort, Uncontrolled pain Additional Instructions: Dr. Peterson will direct when you can return to work and drive. No prescriptions provided due to patient denies need Allergies/Adverse Reactions: Allergies No Known Allergies Allergy (Verified 10/12/18 23:07) Medications to take at Discharge NK 10/12/18 Primary Care Physician: Care Physician,No Primary [Primary Care Provider] - Please follow up with your Primary Care Physician in: patient to schedule appt Test Results: Test results from this visit will be discussed in further detail at your follow- up appointment, if applicable. Please Follow Up With: Dr. Jem Peterson When: 11/19/2018 @ 3:30
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
[2018-11-02 09:00] VITALS: BP 140/78; PULSE 83; RESP 16; TEMP 36.5; O2SAT 98
--- NOTE | 2018-11-02 09:00 | NURSING ---
Discharge instructions given and patient verbalized understanding. Patient will make follow up PCP appointment.
[2018-11-02 12:23] LABS: AST(SGOT) 12 U/L (15-37)
== END 2018-11-02 09:00 | disposition home or self-care (01) | DRG 561 ==
PROVIDERS: Internal Medicine; Nurse Practitioner Family; Admitting Provider Psychiatry & Neurology Neurology; Visit Provider Family Medicine
DX: S32.811D Multiple fractures of pelvis with unstable disruption of pelvic ring, subsequent encounter for fracture with routine healing (principal); S32.401D Unspecified fracture of right acetabulum, subsequent encounter for fracture with routine healing; W23.0XXD Caught, crushed, jammed, or pinched between moving objects, subsequent encounter; Y99.0 Civilian activity done for income or pay; S32.302D Unspecified fracture of left ilium, subsequent encounter for fracture with routine healing; S32.10XD Unspecified fracture of sacrum, subsequent encounter for fracture with routine healing; S22.32XD Fracture of one rib, left side, subsequent encounter for fracture with routine healing; S32.402D Unspecified fracture of left acetabulum, subsequent encounter for fracture with routine healing; S32.591D Other specified fracture of right pubis, subsequent encounter for fracture with routine healing; F17.210 Nicotine dependence, cigarettes, uncomplicated; R74.8 Abnormal levels of other serum enzymes
CPT/HCPCS: 36415; 76705; 80053; 80074; 80076; 80307; 80329; 83516; 84450; 84460; 85025; 86038; 86225; 86235; 97110; 97116; 97162; 97166; 97530; 97535; 97802; G0480

== ENCOUNTER 2018-12-15 18:30 | Outpatient (RCR) | payer OTHER, SELFPAY ==
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
--- NOTE | 2019-02-08 09:50 | HP.PTDCNRP_ITS ---
HP - Discharge Summary (1) - Patient Information BENJAMIN WORLEY was seen in my office for initial evaluation on 11/25/18. The following Plan of Care was established for this patient: Initial Frequency: 2x /Week Initial Duration: 6 Weeks - Anticipated Interventions Patient/Client Instruction: Educate patient on: Condition, Plan of Care For the Purpose of:: To decrease pain, To increase ROM, To improve muscle perf ormance and motor function, To improve ability to perform ADL's, To increase tolerance to activity/condition/position, To improve ability of physical actions for home/community/work/leisure, To improve health of tissue, To decrease soft tissue restriction, To improve endurance, To improve balance, To reduce risk of recurrence, To improve ability to perform tasks related to life management Therapeutic Exercise to Include: Strength training, Endurance training, Body mechanics, Postural training, Flexibilty training, Dynamic Lumbar Stabilization, Kathleen Exercises For the Purpose of:: To decrease pain, To improve muscle performance and motor function, To improve ability to perform ADL's, To increase tolerance to activity/condition/position, To improve ability of physical actions for home/community/work/leisure, To improve health of tissue, To decrease soft tissue restriction, To increase flexibility/ROM, To improve endurance, To improve balance, To reduce risk of recurrence, To improve ability to perform tasks related to life management Cryotherapy (ice pack, ice massage): Yes Thermo therapy (hot pack): Yes For the Purpose of:: To decrease swelling/inflammation, To improve nutrient delivery to tissue, To increase oxygenation perfusion, To improve health of tissue, To decrease soft tissue restriction This patient was last seen in our office 12/15/18. Pertinent comments regarding their Physical therapy will appear below: Patient seen for PT for pevis fracture focusing on work conditoning ,strengthening /rom to hip to RTW, At this point I will be discontinuing this patient from physical therapy. I would be happy to see this patient again in the future if found appropriate by the physician. Thank you! Lamberto Flores, PT, Cert MDT, OCS
== END 2018-12-15 19:00 | disposition home or self-care (01) ==
LOC: PT 18:30
DX: S32.401D Unspecified fracture of right acetabulum, subsequent encounter for fracture with routine healing (principal); S32.810D Multiple fractures of pelvis with stable disruption of pelvic ring, subsequent encounter for fracture with routine healing
CPT/HCPCS: 97110; 97161